=== PATIENT | male | born 1975 | race Caucasian/White ===

== ENCOUNTER → 2017-07-07 | Outpatient (CLI) | payer BC ==
[~2017-07-07] MED LIST: OPTIRAY 320 IV PRN
--- NOTE | 2017-07-07 18:45 | DIAGNOSTIC IMAGING REPORT ---
CT ABD/PELVIS IV AND ORAL CONT CLINICAL HISTORY: ABDOMINAL PAIN LLQ, DIVERTICULOSIS COLON COMPARISON STUDY: 04/21/2016 TECHNIQUE: Following the IV administration of 119 mL of Optiray-320, CT scan of the abdomen and pelvis was performed from the lung bases to the proximal femurs. Images are reviewed in the axial, sagittal, and coronal planes. IV contrast was administered without complication. A dose lowering technique was utilized adhering to the principles of ALARA. CT DOSE: 290.19 mGy.cm FINDINGS: Lower chest: The heart is normal in size and configuration, without pericardial effusion. The lung bases and pleural spaces are clear. Liver: The contrast-enhanced liver is normal in size, contour, and attenuation. There is no intrahepatic biliary ductal dilatation. The hepatic veins and portal veins are patent. Gallbladder: Unremarkable. Spleen: Normal in size and attenuation. Pancreas: Unremarkable. Adrenal glands: Unremarkable. Kidneys: There is symmetric renal cortical enhancement. The kidneys are normal in size without hydronephrosis. Bowel: The patient is status post a left colonic resection. There is moderate fecal retention. There is no acute diverticulitis. The appendix appears normal. There is a small focus of fat within the distal ileum. This does not appear represent an intussusception. Diagnostic considerations include a small lipoma versus enteric contents. Peritoneum: There is no intraperitoneal free air or abdominal ascites. Vasculature: The abdominal aorta is normal in course and caliber. Adenopathy: None. Pelvic viscera: The bladder, and pelvic viscera are unremarkable. Skeletal structures: No destructive osseous lesions are seen. IMPRESSION: 1. No acute intra-abdominal or pelvic findings 2. Postsurgical changes of a left colonic resection 3. No evidence of bowel obstruction. No evidence of free air 4. Normal appendix 5. No evidence of acute diverticulitis. 6. Fecal retention Electronically signed by: Bebeto Edmonds M.D. 07/07/2017 6:44 PM Dictated Date/Time: 07/07/2017 6:35 PM
== END | disposition home or self-care (01) ==
LOC: C.CTS 16:15
PROVIDERS: ATTEND Physician Assistant
DX: R10.32 Left lower quadrant pain (principal); K57.30 Diverticulosis of large intestine without perforation or abscess without bleeding; Z87.19 Personal history of other diseases of the digestive system